=== PATIENT | male | born 1940 | race Caucasian/White ===

== ENCOUNTER 2017-12-17 09:36 | Outpatient (CLI) | payer MEDICARE, SELFPAY ==
[2017-12-17 11:40] LABS: HCT 47.3 % (40.0-50.0); HGB 15.5 g/dL (13.5-17.5); Mean Corp. HGB Concentration 32.8 g/dL (32.0-36.0); Mean Corpuscular Hemoglobin 28.8 pg (27.0-33.0); Mean Corpuscular Volume 87.9 fL (80-95); Mean Platelet Volume 10.8 fL (8.0-11.0); Platelet Count 197 x1000/uL (130-400); RBC 5.38 m/cumm (4.50-6.00); RBC Distribution Width 13.8 % (11.8-14.1)
[2017-12-17 11:52] LABS: ALT 35 U/L (12-78); AST 22 U/L (15-37); Albumin 4.2 g/dL (3.4-5.0); Alkaline Phosphatase 58 U/L (46-116); Amylase 79 U/L (25-115); Anion Gap 2.9 mmol/L (3-11); BUN 17 mg/dL (7-18); Bilirubin, Total 1.5 mg/dL (0.2-1.0); CO2 30.1 mmol/L (21.0-32.0); CREATININE 1.06 mg/dL (0.70-1.30); Calcium 8.8 mg/dL (8.5-10.1); Chloride 104 mmol/L (98-107); Glucose 93 mg/dL (70-100); Lipase 159 U/L (73-393); Potassium 4.4 mmol/L (3.5-5.1); Sodium 137 mmol/L (136-145); Total Protein 7.4 g/dL (6.4-8.2)
== END 2017-12-17 09:56 ==
LOC: LBO 09:47 → LOS 10:58
PROVIDERS: PCP Family Medicine; Visit Provider Family Medicine
DX: D64.9 Anemia, unspecified (principal); R10.9 Unspecified abdominal pain
CPT/HCPCS: 36415; 80053; 83690; 85027; 82150

== ENCOUNTER 2021-01-04 10:14 | Outpatient (REF) | payer MEDICARE, SELFPAY ==
[2021-01-04 14:48] LABS: Abs Immature Grans 0.02 10^3/uL (0.0-0.06); Absolute Basophil Count 0.05 10^3/uL (0.0-0.2); Absolute Eosinophil Count 0.19 10^3/uL (0.0-0.7); Absolute Lymphocyte Count 2.11 10^3/uL (1.2-3.4); Absolute Monocyte Count 0.81 10^3/uL (0.1-0.8); Absolute Neutrophil Count 6.25 10^3/uL (1.2-6.7); Basophils % 0.5; HCT 44.5 % (40.0-50.0); HGB 14.3 g/dL (13.5-17.5); Immature Grans % 0.2; Lymphocytes % 22.4; MCH 29.1 pg (27.0-33.0); MCHC 32.1 % (32.0-36.0); MCV 90.6 fL (80-95); MPV 10.6 fL (8.0-11.0); Monocytes % 8.6; Neutrophils % 66.3; Nucleated RBC 0 %; Platelet Count 198 10^3/uL (130-400); RBC 4.91 10^6/uL (4.36-5.78); RDW 12.9 % (11.8-14.1); RDW-SD 42.5 fL; WBC 9.43 10^3/uL (4.4-10.8)
[2021-01-04 14:55] LABS: Anion Gap 6.1 mmol/L (3-11); BUN 16 mg/dL (7-18); CO2 29.9 mmol/L (21.0-32.0); CREATININE 1.1 mg/dL (0.70-1.30); Calcium 8.7 mg/dL (8.5-10.1); Chloride 103 mmol/L (98-107); Glucose 116 mg/dL (74-106); Potassium 4.2 mmol/L (3.5-5.1); Sodium 139 mmol/L (136-145); Uric Acid 6.2 mg/dL (3.5-7.2)
== END 2021-01-04 10:15 | disposition home or self-care (01) ==
LOC: LBN 10:14
PROVIDERS: PCP Family Medicine; Visit Provider Nurse Practitioner Family
DX: M25.531 Pain in right wrist (principal)
CPT/HCPCS: 80048; 84550; 85025

== ENCOUNTER 2021-01-04 14:24 | Outpatient (CLI) | payer MEDICARE, SELFPAY ==
--- NOTE | 2021-01-04 09:45 | DI.RAD_ITS ---
Exam(s) XR WRIST RT COMPLETE EXAM: XR WRIST RT COMPLETE-three views CLINICAL HISTORY: right wrist pain,m25.531. TECHNIQUE: 2D digital imaging was performed. COMPARISON: No exams were available for comparison FINDINGS: There is no fracture of distal radius and ulna nor significant ulnar variance. However, on the lateral view there is a 3 x 2 millimeter calcific density noted dorsally. Possibly a ccessory ossicle. Other calcific densities are also seen more distally on the lateral view on the do rsal aspect of the wrist as well as a 3 x 2 millimeter calcification on the volar aspect of the proxi mal carpal row. IMPRESSION: Soft tissue calcific densities both on the dorsal and palmar aspect of the carpal row bones. Possibl y represent small fractures. Dorsal finding may be accessory ossicle. Clinically indicated follow-up MRI can for added sensitivity and specificity. DATA REPOSITORY: RADIATION DOSE DELIVERED:
== END 2021-01-04 14:44 ==
PROVIDERS: PCP Family Medicine; Visit Provider Nurse Practitioner Family
DX: M25.531 Pain in right wrist (principal); M25.831 Other specified joint disorders, right wrist
CPT/HCPCS: 73110

== ENCOUNTER 2022-11-03 13:41 | Outpatient (REF) | payer MEDICARE, SELFPAY ==
[2022-11-03 18:06] LABS: Abs Immature Grans 0.04 10^3/uL (0.0-0.06); Absolute Lymphocyte Count 1.82 10^3/uL (1.2-3.4); Absolute Monocyte Count 0.92 10^3/uL (0.1-0.8); Basophils % 0.6; Eosinophils % 1.8; HCT 41.1 % (40.0-50.0); HGB 13.6 g/dL (13.5-17.5); Immature Grans % 0.4; Lymphocytes % 16.8; MCHC 33.1 % (32.0-36.0); MCV 91 fL (80-95); MPV 11.1 fL (8.0-11.0); Monocytes % 8.5; Neutrophils % 71.9; Platelet Count 195 10^3/uL (130-400); RBC 4.53 10^6/uL (4.36-5.78); RDW 13.2 % (11.8-14.1); RDW-SD 43.4 fL; WBC 10.84 10^3/uL (4.4-10.8)
[2022-11-03 18:10] LABS: Absolute Basophil Count 0.07 10^3/uL (0.0-0.2); Absolute Neutrophil Count 7.79 10^3/uL (1.2-6.7)
[2022-11-03 18:12] LABS: Uric Acid 5.7 mg/dL (3.5-7.2)
== END 2022-11-03 13:42 | disposition home or self-care (01) ==
LOC: LBN 13:41
PROVIDERS: PCP Family Medicine; Visit Provider Nurse Practitioner Family
DX: M79.672 Pain in left foot (principal); L53.8 Other specified erythematous conditions
CPT/HCPCS: 84550; 85025

== ENCOUNTER → 2022-12-05 03:46 | Outpatient (CLI) | payer MEDICARE, SELFPAY ==
--- NOTE | 2022-12-05 | DI.MRI_ITS ---
Exam(s) MR LUMBAR SPINE WO EXAM: MR LUMBAR SPINE WO CLINICAL HISTORY: SCREEN FOR OVERT NERVE ROOT COMPRESSION TO ACCOUNT FOR SENSORY SYMPTOMS. TECHNIQUE: Multiplanar multisequence MRI of the Lumbar spine was performed. COMPARISON: No exams were available for comparison FINDINGS: Bones: The last intervertebral disc space is designated the L5/S1 level for the numbering purpose of this examination. The vertebral body heights are well maintained. There are Schmorl's nodes seen in the superior endplates of L2-3 and 4 and the inferior endplate of T12. Mild degenerative endplate si gnal changes are seen particularly at L2-3 and L3-L4. Cord: The conus tip ends at the T12 level. It is of normal size and signal intensity. T12-L1: No disc herniations or bulges are present. No central spinal canal or neural foraminal stenos is. L1-2: There is a mild diffuse disc bulge and mild degenerative changes of the facets. No significant central spinal canal stenosis is seen. No significant neural foraminal stenosis is present. L2-3: There is a mild diffuse disc bulge. There are degenerative changes of the facets. No signific ant central spinal canal stenosis is seen. Mild bilateral neural foraminal stenosis is present. L3-4: There is a mild diffuse disc bulge. There are degenerative changes of the facets present. No significant central spinal canal stenosis is seen.Moderate bilateral neural foraminal stenosis is pre sent. L4-5: There are degenerative changes of the facets. There is a mild diffuse disc bulge. No focal di sc herniation. There is mild narrowing of the neural foramen bilaterally. L5-S1: There are degenerative changes seen at the facets. No central spinal canal or neural foramina l stenosis. Soft tissues: The visualized SI joints and sacrum are well maintained. There is mild atrophy of the p araspinal muscles. Visualized abdominal organs: Simple cysts are seen in the left kidney. No follow-up is recommended. IMPRESSION: 1. Multilevel degenerative changes in the lumbar spine as described. 2. Multilevel neural foraminal narrowing in the lumbar spine. Please see above for the specific leve ls. DATA REPOSITORY:
== END ==
PROVIDERS: PCP Family Medicine; Visit Provider Neuromusculoskeletal Medicine & OMM
DX: M99.63 Osseous and subluxation stenosis of intervertebral foramina of lumbar region (principal); M51.36 Other intervertebral disc degeneration, lumbar region
CPT/HCPCS: 72148

== ENCOUNTER 2024-08-14 02:13 | Outpatient (CLI) | payer MEDICARE, SELFPAY ==
--- NOTE | 2024-08-14 07:15 | DI.MRI_ITS ---
Exam(s) MR BRAIN WO/W EXAM: MR BRAIN WO/W CLINICAL HISTORY: evaluate brain for metastasis,metastatic melanoma,c43.9. TECHNIQUE: Multiplanar multisequence MRI of the brain was performed. CONTRAST MATERIAL: IV Contrast: 20 ML of Dotarem contrast administered. COMPARISON: No exams were available for comparison FINDINGS: VENTRICLES AND EXTRA AXIAL SPACES: Normal in size and morphology for the patient's age. HEMORRHAGE: None. CEREBRAL PARENCHYMA: No focus of restricted diffusion to suggest acute infarct. No space-occupying le clemencia identified. Moderate atrophy. Mild white matter changes of small vessel disease. BRAINSTEM/CEREBELLUM: Normal. CALVARIUM: Normal. Contour defect in the scalp over the high right parietal region. No abnormal sig nal changes no abnormal enhancing mass. ENHANCEMENT: No suspicious enhancement identified. VISUALIZED PARANASAL SINUSES/MASTOIDS: mucosal thickening of the left maxillary sinus and ethmoid ai r cells.. Orbits: Unremarkable. Pituitary: Not enlarged. Vasculature: Normal flow voids. IMPRESSION: Atrophy. No evidence of metastatic lesions. DATA REPOSITORY:
[2024-08-14] MEDS: Gadoterate meglumine 20 ML SYRINGE IVP (12:20)
[2024-08-14] MEDS: Normal Saline Flush 10 ML SYR IVP (12:20)
== END 2024-08-14 02:33 ==
LOC: DI 02:13
PROVIDERS: PCP Family Medicine; Visit Provider Family Medicine
DX: C43.9 Malignant melanoma of skin, unspecified (principal); G31.9 Degenerative disease of nervous system, unspecified
CPT/HCPCS: 70553

== ENCOUNTER 2024-10-20 03:14 | Outpatient (CLI) | payer MEDICARE, SELFPAY ==
[2024-10-20 09:45] LABS: Abs Immature Grans 0.02 10^3/uL (0.0-0.06); HCT 41.6 % (40.0-50.0); HGB 13.5 g/dL (13.5-17.5); Immature Grans % 0.2 %; MCH 29.9 pg (27.0-33.0); MCHC 32.5 % (32.0-36.0); MCV 92 fL (80-95); MPV 9.8 fL (8.0-11.0); Platelet Count 182 10^3/uL (130-400); RBC 4.51 10^6/uL (4.36-5.78); RDW 13.2 % (11.8-14.1); RDW-SD 45.2 fL; WBC 8.97 10^3/uL (4.4-10.8)
[2024-10-20 10:05] LABS: ALT 32 U/L (16-63); AST 21 U/L (15-37); Albumin 4.0 g/dL (3.4-5.0); Alkaline Phosphatase 59 U/L (46-116); Anion Gap 7.1 mmol/L (3-11); BUN 16 mg/dL (7-18); Bilirubin, Total 1.6 mg/dL (0.2-1.0); CO2 29.9 mmol/L (21.0-32.0); Calcium 9.1 mg/dL (8.5-10.1); Chloride 104 mmol/L (98-107); Estimated GFR 66.61 (mL/min/1.73m2); Glucose 107 mg/dL (74-106); LDH 182 U/L (85-227); Potassium 4.1 mmol/L (3.5-5.1); Sodium 141 mmol/L (136-145); TSH 1.51 uIU/mL (0.36-3.74); Total Protein 7.2 g/dL (6.4-8.2)
== END 2024-10-20 03:15 | disposition home or self-care (01) ==
LOC: LBO 03:14
PROVIDERS: PCP Family Medicine; Visit Provider Internal Medicine Medical Oncology
DX: Z79.899 Other long term (current) drug therapy (principal); C78.00 Secondary malignant neoplasm of unspecified lung
CPT/HCPCS: 36415; 80053; 83615; 84439; 84443; 85025

== ENCOUNTER 2024-11-09 21:58 | Observation (INO) | payer MEDICARE, SELFPAY ==
[2024-11-09] VITALS (13 sets, daily range): BP systolic 145–165; BP diastolic 52–60; PULSE 79–97; RESP 14–33; TEMP 38.6; O2SAT 91–94
--- NOTE | 2024-11-09 22:15 | DI.CT_ITS ---
Exam(s) CT CHEST/ABD/PEL W EXAM: CT CHEST/ABD/PEL W CLINICAL HISTORY: Metastatic melanoma, eval for pneumonia, febrile. TECHNIQUE: Imaging Protocol: Axial computed tomography images with coronal and sagittal reformatted images were created and reviewed CONTRAST MATERIAL: Intravenous: Omnipaque 350 Contrast volume:75 mL Oral: None COMPARISON: No exams were available for comparison FINDINGS: CHEST: LUNGS: There is a malignant-appearing nodule in the right upper lobe measuring approximately 2 cm AP by 1.9 cm wide by 2.8 cm craniocaudal. Suspicious for neoplasm.. There is also metastatic appearing lesion evident in the left upper lobe measuring 1 x 1.0 cm in the apical posterior segment of the left upper lobe adjacent to the upper aspect of the major fissure. There is also a noncalcified 9 by 5 mm nodule in the right lower lobe which may also be metastatic given the history here. Other smaller more benign-appearing nodules in the lung alvarado are also noted. There are no infectious appearing infiltrates and there are no pleural effusions. MEDIASTINUM: There is no hilar nor mediastinal adenopathy. Visualized thyroid unremarkable. CARDIAC: Heart size appears minimally prominent. There is no pericardial effusion. The diameter of the ascending thoracic aorta is upper normal. There is no evidence of aortic dissection. Some coronary artery calcifications noted. OSSEOUS: No significant osseous lesions.No fractures evident.. ABDOMEN: There is no ascites. No abnormal mesenteric masses. LIVER: There are no focal hepatic lesions nor dilatation of intrahepatic ducts. GALLBLADDER/BILIARY: Gallbladder surgically absent. CBD is not dilated. PANCREAS: There is a mass in the head-uncinate process of the pancreas which is partially solid partially cystic. This mass measures approximately 2.6 cm wide by 2.6 cm AP by 4 cm craniocaudal. There are no additional masses in the body and tail the pancreas. The pancreatic duct is dilated.. There are no peripancreatic fluid collections. A few scattered pancreatic calcifications are noted. SPLEEN: Spleen is not enlarged. There are no intrasplenic lesions. Splenic and portal veins are patent. ADRENALS: There are no significant adrenal masses. KIDNEYS: Right kidney unremarkable. There is a benign cyst in the superior pole the left kidney which measures 3.5 x 3.0 cm. This does not require further imaging workup. There are no solid renal masses nor calculi nor hydronephrosis.. ABDOMINAL AORTA: Abdominal aorta is not enlarged. LYMPH NODES: There is no retroperitoneal nor paraaortic adenopathy. ABDOMINAL WALL: No evidence of significant anterior abdominal wall nor inguinal hernia. GI: There is no evidence of bowel obstruction. PELVIS: LYMPH NODES: There is no intrapelvic nor inguinal adenopathy. GI: No evidence of appendicitis.Sigmoid is quite redundant. No evidence of diverticulitis. URINARY BLADDER: Mild uniform thickening of the urinary bladder wall noted. Pelvic ureters are not dilated. REPRODUCTIVE: Mildly enlarged prostate. Seminal vesicles unremarkable. OSSEOUS: No fractures nor significant osseous lesions. Prior lower lumbar laminectomies. No hardware. IMPRESSION: 1. There are metastatic nodules in the upper lobes of both lungs as well as a smaller possible metastatic nodule in the right lower lobe. There are no obvious infectious appearing infiltrates and there are no pleural effusions nor intrathoracic adenopathy. 2. There is a mass in the pancreatic head-uncinate process as described above which is concerning for neoplasm and can be further studied with pancreatic protocol contrast infused MRI for added specificity. Pancreatic duct is moderately dilated. Given that there are few scattered calcifications in the pancreas there is a possibility that there has been prior pancreatitis and that this abnormal appearance of the pancreatic head is possibly related to sequelae of prior pancreatitis, as opposed to true neoplasm. 3. Prior cholecystectomy. The biliary tree is not dilated. 4. Other findings as above Preliminary virtual Radiology report was reviewed Final report (pancreas findings) called by myself to the hospitalist 11/10/2024 RADIATION DOSE DELIVERED: 609.84mGy.cm Total DLP DATA REPOSITORY: All CT scans at this facility are submitted to the National Radiology Data Registry (NRDR) Dose Index Registry (DIR) with the [employer] (ACR). RADIATION OPTIMIZATION: All CT scans at this facility use at least one of these dose optimization techniques: automated exposure control; mA and/or kV adjustment per patient size (includes targeted exams where dose is matched to clinical indication); or iterative reconstruction.
[2024-11-09 22:46] LABS: BE (Venous) 0 mmol/L (-2-3); HCO3 (Venous) 24 mmol/L (23-28); O2 Sat (Venous) 94 %; TCO2 (Venous) 22 mmol/L (24-29); pCO2 (Venous) 34 mmHg (41-51); pO2 (Venous) 66 mmHg
[2024-11-09 22:49] LABS: Abs Immature Grans 0.04 10^3/uL (0.0-0.06); HCT 40.2 % (40.0-50.0); HGB 13.1 g/dL (13.5-17.5); Immature Grans % 0.3 %; MCH 28.5 pg (27.0-33.0); MCHC 32.6 % (32.0-36.0); MCV 87 fL (80-95); MPV 9.2 fL (8.0-11.0); Platelet Count 244 10^3/uL (130-400); RBC 4.60 10^6/uL (4.36-5.78); RDW 12.3 % (11.8-14.1); RDW-SD 39.7 fL; WBC 13.44 10^3/uL (4.4-10.8)
--- NOTE | 2024-11-09 23:01 | W.ED.GENAD ---
Discharge Plan Disposition Patient Disposition: Admit to [facility] Condition: Improving Discharge Details Clinical Impression: Fever, Sepsis, Atelectasis of left lung Primary Care Provider: Robert Granger ED Provider: Isiah Pablo Home Meds and New Rx's Prescriptions: No Action ascorbate calcium (vitamin C) 500 mg tablet 500 mg PO DAILY Adult Probiotic 3 billion cell capsule 3,000 mmu cells PO DAILY Rx Instructions: administer with a meal niacin 50 mg tablet 50 mg PO BID Keytruda 25 mg/mL solution 200 mg IV Q6W Rx Instructions: administer over 30 mins gabapentin 300 mg capsule 600 - 900 mg PO TID Patient Comments: 2 in the A.m. 2 at noon and 3 at bedtime rosuvastatin 10 mg tablet 10 mg PO DAILY multivitamin [Daily Multi-Vitamin] 1 EACH tablet 1 tab PO DAILY dapsone 25 mg tablet 75 mg PO DAILY Patient Comments: for pemphigoid Rx Instructions: 75mg alternating with 50mg [id number] colchicine 0.6 mg capsule 0.6 mg PO DAILY PRN Rx Instructions: take 2 capsules 1.2mg then take 1 capsule 1 hours later. HPI General Date/Time Provider Initiated Documentation: 11/09/24 22:05. HPI Narrative: This is a pleasant 83-year-old male with a past medical history of high cholesterol, metastatic melanoma with metastases to the lungs, currently receiving therapy for Keytruda, previous cholecystectomy, pancreatic cyst, gout, who presents today for evaluation of fever. Patient and recently just got back from [place], they were around a significant amount of people for multiple shows during that time. Tonight the patient became extremely chilled. He could not get warm. His took his temperature and it was noted to be 106 on their home thermometer. He was given 1000 mg of Tylenol and brought into the ER for further assessment. He denies any new cough, abdominal., Rash, headache, neck pain, or chest pain. He denies any dysuria or urinary frequency. No other complaints. No vomiting or diarrhea. Related Data Home Medications ?Medication ?Instructions ?Recorded ?Confirmed multivitamin (Daily Multi-Vitamin 1 tab PO DAILY 09/23/13 11/09/24 tablet) ascorbate calcium (vitamin C) 500 500 mg PO DAILY 12/11/19 11/09/24 mg tablet lactobacillus combination no.8 3 3,000 mmu cells PO DAILY 12/11/19 11/09/24 billion cell capsule (Adult Probiotic) dapsone 25 mg tablet 75 mg PO DAILY for pemphigoid 12/05/22 11/09/24 niacin 50 mg tablet 50 mg PO BID 12/05/22 11/09/24 rosuvastatin 10 mg tablet 10 mg PO DAILY 08/18/24 11/09/24 gabapentin 300 mg capsule 600 - 900 mg PO TID 09/24/24 11/09/24 pembrolizumab 25 mg/mL intravenous 200 mg (8 mL) IV Q6W metastatic 09/24/24 11/09/24 solution (Keytruda) melanoma colchicine 0.6 mg capsule 0.6 mg PO DAILY PRN 11/09/24 11/09/24 Previous Rx's ?Medication ?Instructions ?Recorded pembrolizumab 25 mg/mL intravenous 200 mg (8 mL) IV Q6W metastatic 09/24/24 solution (Keytruda) melanoma Allergies Allergy/AdvReac Type Severity Reaction Status Date / Time Tetracyclines Allergy Severe ANGIOEDEMA Verified 11/09/24 22:21 General Stated Complaint: Fever SKIP: 3 Exam Narrative Exam Narrative: 1.Const: Well-nourished, Well-developed, appearing stated age 2.Eyes: PERRL, no conjunctival injection, and symmetrical lids. 3.ENT: Atraumatic external nose and ears. Moist MM. Neck: Symmetric, trachea midline, No thyromegaly. Patient demonstrates good movement of cervical neck. There is no nuchal rigidity, no nuchal tenderness. Patient is able to flex the neck without any difficulty or significant pain. Negative Kernig's and Brudzinski sign. 4.CVS: +S1/S2, Peripheral pulses 2+ and equal in all extremities. Brisk capillary refill in all extremities. 5.RESP: Unlabored respiratory effort. Mild crackles left lower lung alvarado 6.GI: Soft, Nontender/Nondistended, No hepatosplenomegaly. No guarding or rebound. 7.MSK: Normocephalic/Atraumatic, Extremities w/o deformity or ttp No cyanosis or clubbing, Normal movement of all extremities 8.Skin: Warm, Dry. No rashes or lesions. 9.Neuro: electrophysiology tech II-XII grossly intact. Sensation grossly intact, no focal neurologic deficits. 10.Psych: (AAO) x3. Appropriate mood and affect Course Vital Signs Vital signs: Vital Signs Temperature 38.6 C H 11/09/24 22:11 Pulse 95 H 11/09/24 22:11 Respiratory Rate 16 11/09/24 22:11 Blood Pressure 145/52 H 11/09/24 22:11 Pulse Oximetry 92 11/09/24 22:11 Temperature 38.6 C H 11/09/24 22:11 Temperature Source Oral 11/09/24 22:11 Pulse 95 H 11/09/24 22:11 Respiratory Rate 16 11/09/24 22:11 Blood Pressure 145/52 H 11/09/24 22:11 Blood Pressure Position Sitting 11/09/24 22:11 Pulse Oximetry 92 11/09/24 22:11 Oxygen Delivery Method Room Air 11/09/24 22:11 Oxygen Flow Rate 0 11/09/24 22:11 Lab/Test Results Lab/Test Results: 11/09/24 22:37 Blood Blood Culture - Pending 11/09/24 22:21 Blood Blood Culture - Pending Laboratory Tests Range/Units 11/09/24 22:37 WBC (4.4-10.8) 10^3/uL 13.44 H RBC (4.36-5.78) 10^6/uL 4.60 Hgb (13.5-17.5) g/dL 13.1 L Hct (40.0-50.0) % 40.2 MCV (80-95) fL 87 MCH (27.0-33.0) pg 28.5 MCHC (32.0-36.0) % 32.6 RDW (11.8-14.1) % 12.3 Plt Count (130-400) 10^3/uL 244 MPV (8.0-11.0) fL 9.2 Immature Gran % % 0.3 Neutrophils % % 75.7 Lymphocytes % % 12.6 Monocytes % % 9.7 Eosinophils % % 1.3 Basophils % % 0.4 Nucleated RBC % (0.0-0.3) % 0.0 Absolute Neutrophils (1.2-6.7) 10^3/uL 10.17 H Absolute Lymphocytes (1.2-3.4) 10^3/uL 1.69 Absolute Monocytes (0.1-0.8) 10^3/uL 1.30 H Absolute Eosinophils (0.0-0.7) 10^3/uL 0.17 Absolute Basophils (0.0-0.2) 10^3/uL 0.05 VBG pH (7.31-7.41) 7.46 H VBG pCO2 (41-51) mmHg 34 L VBG pO2 mmHg 66 VBG HCO3 (23-28) mmol/L 24 VBG Total CO2 (24-29) mmol/L 22 L VBG O2 Saturation % 94 VBG Base Excess (-2-3) mmol/L 0 VBG Lactate (<or=2.0) mmol/L 0.9 Medical Decision Making This is a pleasant 83-year-old male with a past medical history of high cholesterol, metastatic melanoma with metastases to the lungs, currently receiving therapy for Keytruda, previous cholecystectomy, pancreatic cyst, gout, who presents today for evaluation of fever. Patient and recently just got back from [place], they were around a significant amount of people for multiple shows during that time. Tonight the patient became extremely chilled. He could not get warm. His took his temperature and it was noted to be 106 on their home thermometer. He was given 1000 mg of Tylenol and brought into the ER for further assessment. He denies any new cough, abdominal., Rash, headache, neck pain, or chest pain. He denies any dysuria or urinary frequency. No other complaints. No vomiting or diarrhea. Exam demonstrates mild crackles in the left lower lung field, no rash, no ear pain or neck pain, no abdominal pain on exam. Differential includes pneumonia secondary to his metastatic lesions or independent, viral etiology, urinary infection. Due to his complicated metastatic nature, potential for indolent infections, we will get CT imaging of chest and abdomen, will get blood work, treat his fever, monitor closely and reassess. Patient meet sepsis criteria. Due to his age and risk factors we will start broad-spectrum antibiotics of vancomycin and Zosyn. 2:18 AM Laboratory workup has returned, patient has a white count of 13.4, left shift is present, electrolytes stable renal function stable, procalcitonin and lactic stable. Urinalysis shows no evidence of infection. COVID flu and RSV are negative. CT scan demonstrates no acute process aside from presence of metastatic disease. However on my personal review there does appear to be atelectatic changes at the base of the left lung, she is also aware the crackles are auscultated clinically on exam. With the patient's elevated white count, fever, initial tachycardia, he does meet SIRS criteria, with the concern for the pulmonary component in addition to potential bacteremia, he certainly meets sepsis criteria. With the patient's age of 83, clinical risk factors, the presence of the neuromodulator Keytruda, I do feel that he would benefit admission/observation, pending blood cultures. Discussed this with patient and family, they agree. Discussed this with the hospitalist Dr. Wheeler. He agrees. I have extensively reviewed the treatment plan with the patient. I have addressed all patient concerns at this time. I have also discussed the plan with the admitting physician and they agree with the current assessment and plan and have agreed to assume responsibility for the patient. All parties demonstrate verbal understanding and agreement with our assessment and plan at this time. The documentation in this chart was dictated using [employer] dictation software. Please excuse any dictation errors. From FINDINGS: Lungs: Right upper lobe spiculated mass with cicatrization and superior subpleural scarring. Lesion measures about 20 x 20 x 19 mm (series 4, image 27; series 8, image 50). Lobulated mass in the posterior aspect of the left upper lobe measuring about 10 x 11 x 11 mm (series 4, image 48; series 8, image 50). Some lingular micronodularity, scarring, atelectasis. A few additional nodules are noted of the lung bases. Pleural spaces: Unremarkable. No pneumothorax. No pleural effusion. Heart: A few aortic valve calcifications are seen. Coronary arteries: Heavy coronary calcified atherosclerotic disease. Lymph nodes: Unremarkable. No enlarged lymph nodes. Vasculature: Heavy atherosclerotic disease of the intrathoracic aorta extending into the major visualized branches. Mitral annulus and aortic annulus calcifications Bones/joints: Diffuse degenerative change of the visualized osseous structures. Soft tissues: Unremarkable. IMPRESSION: 1. Findings are congruent with intrathoracic metastatic disease as highlighted above. Given lack of direct comparisons, difficult to assess for stability of the findings at this time. 2. There is no definitive evidence for pneumonia at this time. 3. Aortic valve calcifications which can be seen in stenosis. Correlate clinically. FINDINGS: Liver: Normal. No mass. Gallbladder and biliary ducts: Cholecystectomy. Pancreas: Atrophy of the pancreas. Few punctate calcification of the pancreas are seen, likely sequela of prior insult. Spleen: Normal. No splenomegaly. Adrenal glands: Normal. No mass. Kidneys and ureters: Benign left renal cysts. Symmetric perinephric stranding bilaterally. Stomach and bowel: Mild to moderate colonic stool burden. Appendix: No evidence of appendicitis. Intraperitoneal space: Unremarkable. No free air. No significant fluid collection. Vasculature: Heavy atherosclerotic disease. Lymph nodes: Unremarkable. No enlarged lymph nodes. Urinary bladder: Unremarkable as visualized. Reproductive: Dystrophic calcifications of the prostate gland. Bones/joints: Diffuse degenerative changes of the visualized osseous structures. Soft tissues: Unremarkable. IMPRESSION: No acute intra-abdominal findings. Thank you for allowing us to participate in the care of your patient. 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
[2024-11-09] MEDS: Normal Saline 1,000 ML 1000 ML IV (23:03)
[2024-11-09 23:04] LABS: ALT 45 U/L (16-63); AST 26 U/L (15-37); Albumin 3.7 g/dL (3.4-5.0); Alkaline Phosphatase 75 U/L (46-116); Anion Gap 10.2 mmol/L (3-11); BUN 17 mg/dL (7-18); Bilirubin, Total 1.5 mg/dL (0.2-1.0); CO2 25.8 mmol/L (21.0-32.0); Calcium 9.1 mg/dL (8.5-10.1); Chloride 100 mmol/L (98-107); Estimated GFR 74.68 (mL/min/1.73m2); Glucose 137 mg/dL (74-106); Potassium 3.8 mmol/L (3.5-5.1); Sodium 136 mmol/L (136-145); Total Protein 7.6 g/dL (6.4-8.2)
[2024-11-09] MEDS: Omnipaque 350 MG/ML 100 ML BTL IJ (23:21)
[2024-11-09] MEDS: Normal Saline - Diluent 50 ML VIAL IJ (23:22)
[2024-11-09] MEDS: Normal Saline Flush 10 ML SYR IVP (23:22)
[2024-11-09 23:26] LABS: Procalcitonin < 0.10 ng/mL
[2024-11-09] MEDS: PIPERACILLIN/TAZO 4.5 GM in Normal Saline 100 ML IVPB (23:51)
[2024-11-09] MEDS: Ketorolac 15 MG/ML VIAL IVP (23:51)
[2024-11-10] VITALS (17 sets, daily range): BP systolic 130–146; BP diastolic 58–79; PULSE 57–75; RESP 11–24; TEMP 36.4–36.5; O2SAT 90–99
[2024-11-10 00:03] LABS: COVID-19 PCR Negative (Negative); RSV PCR Negative (Negative)
[2024-11-10 00:57] LABS: Glucose Negative (Negative)
[2024-11-10 01:04] LABS: WBC 0-2 HPF (0-5)
--- NOTE | 2024-11-10 01:05 | DI.VRAD_ITS ---
PROCEDURE INFORMATION: Exam: CT Chest With Contrast; Diagnostic Exam date and time: 11/09/2024 11:19 PM Age: 83 years old Clinical indication: Fever; Metastatic melanoma, eval for pneumonia, febrile TECHNIQUE: Imaging protocol: Diagnostic computed tomography of the chest with contrast. 3D rendering (Not supervised by radiologist): MIP and/or 3D reconstructed images were created by the technologist. Radiation optimization: All CT scans at this facility use at least one of these dose optimization techniques: automated exposure control; mA and/or kV adjustment per patient size (includes targeted exams where dose is matched to clinical indication); or iterative reconstruction. Contrast material: OMNIPAQUE 350; Contrast volume: 75 ml; Contrast route: INTRAVENOUS (IV); COMPARISON: No relevant prior studies available. FINDINGS: Lungs: Right upper lobe spiculated mass with cicatrization and superior subpleural scarring. Lesion measures about 20 x 20 x 19 mm (series 4, image 27; series 8, image 50). Lobulated mass in the posterior aspect of the left upper lobe measuring about 10 x 11 x 11 mm (series 4, image 48; series 8, image 50). Some lingular micronodularity, scarring, atelectasis. A few additional nodules are noted of the lung bases. Pleural spaces: Unremarkable. No pneumothorax. No pleural effusion. Heart: A few aortic valve calcifications are seen. Coronary arteries: Heavy coronary calcified atherosclerotic disease. Lymph nodes: Unremarkable. No enlarged lymph nodes. Vasculature: Heavy atherosclerotic disease of the intrathoracic aorta extending into the major visualized branches. Mitral annulus and aortic annulus calcifications. Bones/joints: Diffuse degenerative change of the visualized osseous structures. Soft tissues: Unremarkable. IMPRESSION: 1. Findings are congruent with intrathoracic metastatic disease as highlighted above. Given lack of direct comparisons, difficult to assess for stability of the findings at this time. 2. There is no definitive evidence for pneumonia at this time. 3. Aortic valve calcifications which can be seen in stenosis. Correlate clinically. PROCEDURE INFORMATION: Exam: CT Abdomen And Pelvis With Contrast Exam date and time: 11/09/2024 11:19 PM Age: 83 years old Clinical indication: Fever; Metastatic melanoma, eval for pneumonia, febrile TECHNIQUE: Imaging protocol: Computed tomography of the abdomen and pelvis with contrast. 3D rendering (Not supervised by radiologist): MIP and/or 3D reconstructed images were created by the technologist. Radiation optimization: All CT scans at this facility use at least one of these dose optimization techniques: automated exposure control; mA and/or kV adjustment per patient size (includes targeted exams where dose is matched to clinical indication); or iterative reconstruction. Contrast material: OMNIPAQUE 350; Contrast volume: 75 ml; Contrast route: INTRAVENOUS (IV); COMPARISON: MR LUMBAR SPINE WO 12/05/2022 8:38 AM FINDINGS: Liver: Normal. No mass. Gallbladder and biliary ducts: Cholecystectomy. Pancreas: Atrophy of the pancreas. Few punctate calcification of the pancreas are seen, likely sequela of prior insult. Spleen: Normal. No splenomegaly. Adrenal glands: Normal. No mass. Kidneys and ureters: Benign left renal cysts. Symmetric perinephric stranding bilaterally. Stomach and bowel: Mild to moderate colonic stool burden. Appendix: No evidence of appendicitis. Intraperitoneal space: Unremarkable. No free air. No significant fluid collection. Vasculature: Heavy atherosclerotic disease. Lymph nodes: Unremarkable. No enlarged lymph nodes. Urinary bladder: Unremarkable as visualized. Reproductive: Dystrophic calcifications of the prostate gland. Bones/joints: Diffuse degenerative changes of the visualized osseous structures. Soft tissues: Unremarkable. IMPRESSION: No acute intra-abdominal findings. Dictated and Authenticated by: Eduardo Blevins MD. Orderin Bev Joyce MD
--- NOTE | 2024-11-10 03:05 | W.PM.HP.N ---
Date of service: 11/10/24 Time of Service: 03:05 Assessment and Plan Assessment and plan (1) Metastatic melanoma: Status: Acute Assessment and plan: cw medical management (2) Sepsis: Status: Acute Assessment and plan: Do not know for sure if there is patient meets sepsis by criteria but he does have SIRS. We will treat with Rocephin and Zithromax. Continue with IV fluids. Cultures are pending. Most likely be able to discharge home tomorrow. In the ED a lactate level INR level bili level were not drawn which would be able to decide if he has severe sepsis but by physical physical exam and other lab data think he is qualified. [id number] History of Present Illness History of Present Illness Chief Complaint: sob Narrative: This is an 83-year-old gentleman with a known history of melanoma for which he is treated with Keytruda presents with a fever as well as coughing. Patient had recently been in a conference with a lot of people and has concerned that he has picked up a virus or pneumonia. While he was in the ED he was noted to have an elevated temperature at 38.6 as well as tachypnea and elevated white count. He does meet criteria for SIRS. CT scan done did not indicate pneumonia but he does have a known mass for which he is being treated for. It is thought that this mass is due to his underlying melanoma. By curb 65 score he only gets 1 point due to age. Considering that it is already 3 in the morning and his 's left to go home, as well as the fact that he did have a significant elevation in his temperature, potential exposure to infection, and leukocytosis we agreed to admit him at least overnight for monitoring. 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) Gout Social History Smoking/Tobacco Use Status: Never Smoking risk assessment performed?: Yes Alcohol Intake: never Drug use: Never Substance use type: does not use Meds Allergies and Home Medications Allergies Allergy/AdvReac Type Severity Reaction Status Date / Time Tetracyclines Allergy Severe ANGIOEDEMA Verified 11/09/24 22:21 Home Medications ?Medication ?Instructions ?Recorded ?Confirmed ?Type multivitamin (Daily Multi-Vitamin 1 tab PO DAILY 09/23/13 11/09/24 History tablet) ascorbate calcium (vitamin C) 500 500 mg PO DAILY 12/11/19 11/09/24 History mg tablet lactobacillus combination no.8 3 3,000 mmu cells PO DAILY 12/11/19 11/09/24 History billion cell capsule (Adult Probiotic) dapsone 25 mg tablet 75 mg PO DAILY for pemphigoid 12/05/22 11/09/24 History niacin 50 mg tablet 50 mg PO BID 12/05/22 11/09/24 History rosuvastatin 10 mg tablet 10 mg PO DAILY 08/18/24 11/09/24 History gabapentin 300 mg capsule 600 - 900 mg PO TID 09/24/24 11/09/24 History pembrolizumab 25 mg/mL intravenous 200 mg (8 mL) IV Q6W metastatic 09/24/24 11/09/24 Rx solution (Keytruda) melanoma colchicine 0.6 mg capsule 0.6 mg PO DAILY PRN 11/09/24 11/09/24 History Exam Narrative Exam Narrative: HEENT-normocephalic atraumatic mucous membranes moist oropharynx is clear he does have multiple areas of actinic keratosis on his scalp. Neck-no lymphadenopathy no JVD no thyromegaly Cardiovascular-regular rate and rhythm no murmur rubs gallops Lungs-does have a crackle in his right base. No accessory muscle use speaking in complete sentences Abdomen-soft nontender nondistended bowel sounds active Extremities-no sinus clubbing or edema Neurologic cranial nerves II through XII intact as tested reflexes in upper EXTR normal as tested Psych-alert and orient x 3 Results Labs 11/09/24 22:37 11/09/24 22:37 Labs: Laboratory Results - last 24 hr 11/09/24 11/09/24 11/10/24 22:37 23:18 00:03 WBC 13.44 H RBC 4.60 Hgb 13.1 L Hct 40.2 MCV 87 MCH 28.5 MCHC 32.6 RDW 12.3 Plt Count 244 MPV 9.2 Immature Gran % 0.3 Neutrophils % 75.7 Lymphocytes % 12.6 Monocytes % 9.7 Eosinophils % 1.3 Basophils % 0.4 Nucleated RBC % 0.0 Absolute Neutrophils 10.17 H Absolute Lymphocytes 1.69 Absolute Monocytes 1.30 H Absolute Eosinophils 0.17 Absolute Basophils 0.05 VBG pH 7.46 H VBG pCO2 34 L VBG pO2 66 VBG HCO3 24 VBG Total CO2 22 L VBG O2 Saturation 94 VBG Base Excess 0 VBG Lactate 0.9 Sodium 136 Potassium 3.8 Chloride 100 Carbon Dioxide 25.8 Anion Gap 10.2 BUN 17 Creatinine 1.0 Est GFR (CKD-EPI 2020) 74.68 Glucose 137 H Calcium 9.1 Total Bilirubin 1.5 H AST 26 ALT 45 Alkaline Phosphatase 75 Total Protein 7.6 Albumin 3.7 Procalcitonin < 0.10 Urine Color Dark Yellow Urine Clarity Sl Cloudy Urine pH 6.0 Ur Specific Donalds 1.010 Urine Protein 30 H Urine Ketones Negative Urine Blood Small H Urine Nitrite Negative Urine Bilirubin Negative Urine Urobilinogen 1.0 H Ur Leukocyte Esterase Negative Urine RBC 3-5 H Urine WBC 0-2 Ur Epithelial Cells Negative Urine Crystals Negative Urine Bacteria Rare Urine Casts Negative Urine Mucus Moderate Urine Other Rare Renal Ur Culture Indicated? C&S Done As Ordered Urine Glucose Negative COVID-19 Source Nasopharynx SARS-CoV-2 (PCR) Negative Influenza Type A (PCR) Negative Influenza Type B (PCR) Negative RSV (PCR) Negative Last Vital Signs Temp 38.6 C H 11/09/24 22:11 Pulse 68 11/10/24 01:01 Resp 24 11/10/24 01:30 BP 141/58 H 11/10/24 01:01 Pulse Ox 94 11/10/24 01:40 Time Spent Time spent with Patient: 40-54 minutes Time was spent: preparing to see the patient(eg.review tests), obtaining and/or reviewing separately otained hiistory, ordering medications,tests, procedures, referring, communicating with other health critical care paramedic, indepentently interpreting results, counseling the patient and care coordination
--- NOTE | 2024-11-10 03:37 | W.PC.ACHO ---
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) Gout Most Recent Vital Signs Temperature 38.6 C H 11/09/24 22:11 Temperature Source Oral 11/09/24 22:11 Pulse 68 11/10/24 01:01 Pulse 64 11/10/24 01:30 Respiratory Rate 24 11/10/24 01:30 Blood Pressure 141/58 H 11/10/24 01:01 Blood Pressure Mean 84 11/10/24 01:01 Blood Pressure Position Sitting 11/09/24 22:11 Pulse Oximetry 94 11/10/24 01:40 Oxygen Delivery Method Room Air 11/09/24 22:11 Oxygen Flow Rate 0 11/09/24 22:11 Allergies Tetracyclines Allergy (Severe, Verified 11/09/24 22:21) ANGIOEDEMA Precautions Isolation Standard precaution 11/09/24 23:26 Active Medications Generic Name Dose Route Start Last Admin Trade Name Freq PRN Reason Stop Dose Admin Iohexol 100 ml 11/09/24 23:30 11/09/24 23:21 Omnipaque 350 Mg/Ml 100 Ml Btl IJ 12/09/24 23:59 75 ml DIRECTED JAMES Administration Sodium Chloride 0 ml 11/09/24 22:20 11/09/24 23:22 Normal Saline Flush 10 Ml Syr IVP 10 ml PRN PRN Administration Sodium Chloride 50 ml 11/09/24 23:30 11/09/24 23:22 Normal Saline - Diluent 50 Ml Vial IJ 50 ml .FOR DI USE JAMES Administration IV IV Catheter Type [Left Hand] Saline Lock IV Catheter Type [Right Diffusics Forearm] IV Catheter Gauge [Left Hand] 20 IV Catheter Gauge [Right 20 Forearm] Diet Orders Category Date Time Status Regular/Normal [DIET] Nutrition 11/10/24 Breakfast Active Diagnostics 11/10/24 11/10/24 11/09/24 Range/Units 05:35 00:03 23:18 WBC Pending (4.4-10.8) 10^3/uL RBC Pending (4.36-5.78) 10^6/uL Hgb Pending (13.5-17.5) g/dL Hct Pending (40.0-50.0) % MCV Pending (80-95) fL MCH Pending (27.0-33.0) pg MCHC Pending (32.0-36.0) % RDW Pending (11.8-14.1) % Plt Count Pending (130-400) 10^3/uL MPV Pending (8.0-11.0) fL Immature Gran % % Neutrophils % % Lymphocytes % % Monocytes % % Eosinophils % % Basophils % % Nucleated RBC % (0.0-0.3) % Absolute Neutrophils (1.2-6.7) 10^3/uL Absolute Lymphocytes (1.2-3.4) 10^3/uL Absolute Monocytes (0.1-0.8) 10^3/uL Absolute Eosinophils (0.0-0.7) 10^3/uL Absolute Basophils (0.0-0.2) 10^3/uL VBG pH (7.31-7.41) VBG pCO2 (41-51) mmHg VBG pO2 mmHg VBG HCO3 (23-28) mmol/L VBG Total CO2 (24-29) mmol/L VBG O2 Saturation % VBG Base Excess (-2-3) mmol/L VBG Lactate (<or=2.0) mmol/L Sodium Pending (136-145) mmol/L Potassium Pending (3.5-5.1) mmol/L Chloride Pending (98-107) mmol/L Carbon Dioxide Pending (21.0-32.0) mmol/L Anion Gap Pending (3-11) mmol/L BUN Pending (7-18) mg/dL Creatinine Pending (0.70-1.30) mg/dL Est GFR (CKD-EPI 2020) Pending (mL/min/1.73m2) Glucose Pending (74-106) mg/dL Calcium Pending (8.5-10.1) mg/dL Total Bilirubin Pending (0.2-1.0) mg/dL AST Pending (15-37) U/L ALT Pending (16-63) U/L Alkaline Phosphatase Pending (46-116) U/L Total Protein Pending (6.4-8.2) g/dL Albumin Pending (3.4-5.0) g/dL Procalcitonin ng/mL Urine Color Dark Yellow (Yellow) Urine Clarity Sl Cloudy (Clear) Urine pH 6.0 (5-8) Ur Specific Morse 1.010 (1.005-1.025) Urine Protein 30 H (Neg-Trace) mg/dL Urine Ketones Negative (Negative) mg/dL Urine Blood Small H (Negative) Urine Nitrite Negative (Negative) Urine Bilirubin Negative (Negative) Urine Urobilinogen 1.0 H (Up to 0.2) mg/dL Ur Leukocyte Esterase Negative (Negative) Urine RBC 3-5 H (0-2) HPF Urine WBC 0-2 (0-5) HPF Ur Epithelial Cells Negative (Negative) HPF Urine Crystals Negative (Negative) HPF Urine Bacteria Rare (Negative) HPF Urine Casts Negative (Negative) LPF Urine Mucus Moderate (Negative) Urine Other Rare Renal (Negative) Ur Culture Indicated? C&S Done As Ordered Urine Glucose Negative (Negative) mg/dL COVID-19 Source Nasopharynx SARS-CoV-2 (PCR) Negative (Negative) Influenza Type A (PCR) Negative (Negative) Influenza Type B (PCR) Negative (Negative) RSV (PCR) Negative (Negative) 11/09/24 Range/Units 22:37 WBC 13.44 H (4.4-10.8) 10^3/uL RBC 4.60 (4.36-5.78) 10^6/uL Hgb 13.1 L (13.5-17.5) g/dL Hct 40.2 (40.0-50.0) % MCV 87 (80-95) fL MCH 28.5 (27.0-33.0) pg MCHC 32.6 (32.0-36.0) % RDW 12.3 (11.8-14.1) % Plt Count 244 (130-400) 10^3/uL MPV 9.2 (8.0-11.0) fL Immature Gran % 0.3 % Neutrophils % 75.7 % Lymphocytes % 12.6 % Monocytes % 9.7 % Eosinophils % 1.3 % Basophils % 0.4 % Nucleated RBC % 0.0 (0.0-0.3) % Absolute Neutrophils 10.17 H (1.2-6.7) 10^3/uL Absolute Lymphocytes 1.69 (1.2-3.4) 10^3/uL Absolute Monocytes 1.30 H (0.1-0.8) 10^3/uL Absolute Eosinophils 0.17 (0.0-0.7) 10^3/uL Absolute Basophils 0.05 (0.0-0.2) 10^3/uL VBG pH 7.46 H (7.31-7.41) VBG pCO2 34 L (41-51) mmHg VBG pO2 66 mmHg VBG HCO3 24 (23-28) mmol/L VBG Total CO2 22 L (24-29) mmol/L VBG O2 Saturation 94 % VBG Base Excess 0 (-2-3) mmol/L VBG Lactate 0.9 (<or=2.0) mmol/L Sodium 136 (136-145) mmol/L Potassium 3.8 (3.5-5.1) mmol/L Chloride 100 (98-107) mmol/L Carbon Dioxide 25.8 (21.0-32.0) mmol/L Anion Gap 10.2 (3-11) mmol/L BUN 17 (7-18) mg/dL Creatinine 1.0 (0.70-1.30) mg/dL Est GFR (CKD-EPI 2020) 74.68 (mL/min/1.73m2) Glucose 137 H (74-106) mg/dL Calcium 9.1 (8.5-10.1) mg/dL Total Bilirubin 1.5 H (0.2-1.0) mg/dL AST 26 (15-37) U/L ALT 45 (16-63) U/L Alkaline Phosphatase 75 (46-116) U/L Total Protein 7.6 (6.4-8.2) g/dL Albumin 3.7 (3.4-5.0) g/dL Procalcitonin < 0.10 ng/mL Urine Color (Yellow) Urine Clarity (Clear) Urine pH (5-8) Ur Specific Morse (1.005-1.025) Urine Protein (Neg-Trace) mg/dL Urine Ketones (Negative) mg/dL Urine Blood (Negative) Urine Nitrite (Negative) Urine Bilirubin (Negative) Urine Urobilinogen (Up to 0.2) mg/dL Ur Leukocyte Esterase (Negative) Urine RBC (0-2) HPF Urine WBC (0-5) HPF Ur Epithelial Cells (Negative) HPF Urine Crystals (Negative) HPF Urine Bacteria (Negative) HPF Urine Casts (Negative) LPF Urine Mucus (Negative) Urine Other (Negative) Ur Culture Indicated? Urine Glucose (Negative) mg/dL COVID-19 Source SARS-CoV-2 (PCR) (Negative) Influenza Type A (PCR) (Negative) Influenza Type B (PCR) (Negative) RSV (PCR) (Negative) 11/10/24 00:03 Urine Culture - Pending Urine - Clean Catch 11/09/24 23:18 Blood Culture - Pending Blood 11/09/24 22:37 Blood Culture - Pending Blood Intake and Output - 24 Hour Total 11/09/24 21:58 thru 11/10/24 02:40 Intake Total 1600 Balance 1600 Weight 96.162 kg Intake: IV 1600 Falls Risk Assessment History of Falls No History 11/09/24 23:27 Contributing Factors No Factors 11/09/24 23:27 Ambulatory Aids Independent 11/09/24 23:27 Tubes/Lines None 11/09/24 23:27 Gait Evaluation No gait disturbance 11/09/24 23:27 Cognition No cognitive impairment 11/09/24 23:27 Fall Total Score 0 11/09/24 23:27 Level of Risk Standard/Low Risk 11/09/24 23:27 Problems (Last Reviewed 08/18/24 @ 11:27 by Stefanie Eisenberg NP) Atelectasis of left lung (Acute) Sepsis (Acute) Fever (Acute) Metastatic melanoma (Acute) v v v v v v v v v Sending and/or Receiving Nurses: Please use comment section below to note any information pertinent to the patient hand-off not included above. Information / Comments:Pt admit for one night observation at this point to med/surg room 226. Came by ambulance to ED,with , with fever of 106 degrees F @ home, was 101.5 on arrival, now 98.4. Recieved 1 g Tylenol, Toradol, 1 L fluid, Zosyn, Vanco and rocephin in ED. Dx w/ community acquired pneumonia, blood cultures pending. Hx of mets. melanoma to lungs on keytruda. Report received from:Called ED @ 0330, spoke w/ [facility], Outside Salesman.
[2024-11-10] MEDS: Enoxaparin 40 MG/0.4 ML SYR SC (03:39)
[2024-11-10] MEDS: cefTRIAXone 1,000 MG in Normal Saline 50 ML 100 MG IVPB (03:40)
[2024-11-10] MEDS: Lactated Ringers 1,000 ML 100 ML IV (04:08)
[2024-11-10 06:54] LABS: HCT 37.1 % (40.0-50.0); HGB 11.6 g/dL (13.5-17.5); MCH 27.7 pg (27.0-33.0); MCHC 31.3 % (32.0-36.0); MCV 89 fL (80-95); MPV 9.5 fL (8.0-11.0); Platelet Count 209 10^3/uL (130-400); RBC 4.19 10^6/uL (4.36-5.78); RDW 12.2 % (11.8-14.1); RDW-SD 39.6 fL; WBC 9.02 10^3/uL (4.4-10.8)
[2024-11-10 07:13] LABS: ALT 35 U/L (16-63); AST 21 U/L (15-37); Albumin 3.2 g/dL (3.4-5.0); Alkaline Phosphatase 65 U/L (46-116); Anion Gap 7.4 mmol/L (3-11); BUN 14 mg/dL (7-18); Bilirubin, Total 1.3 mg/dL (0.2-1.0); CO2 25.6 mmol/L (21.0-32.0); Calcium 8.4 mg/dL (8.5-10.1); Chloride 105 mmol/L (98-107); Estimated GFR 74.68 (mL/min/1.73m2); Glucose 114 mg/dL (74-106); Potassium 3.7 mmol/L (3.5-5.1); Sodium 138 mmol/L (136-145); Total Protein 6.5 g/dL (6.4-8.2)
[2024-11-10] MEDS: Multivitamin TAB 1 TAB PO (08:17)
[2024-11-10] MEDS: Lactobacillus Acidophilus CAP 1 CAP PO (08:17)
[2024-11-10] MEDS: Ascorbic Acid 500 MG TAB PO (08:17)
[2024-11-10] MEDS: Gabapentin 300 MG CAP PO (08:17)
[2024-11-10] MEDS: Azithromycin 250 MG TAB PO (08:17)
[2024-11-10 10:15] LABS: Magnesium 2.3 mg/dL (1.8-2.4)
[2024-11-10 10:29] LABS: TSH 0.08 uIU/mL (0.36-3.74)
--- NOTE | 2024-11-10 11:08 | PDOC.CMDIS ---
Date of service: 11/10/24 Time of Service: 11:08 LACE Index Scoring Tool Questions: Length of Stay (in days): 1 Was the patient admitted via the E.D.?: Yes E.D. Visits: 1 Answers: Total Score: 5 Risk of Readmission: Low Risk Care Management Discharge Plan Reason for Hospitalization: cap Discharge Plan: Bill will discharge home today and no new services are indicated at time of this discharge. He will follow up with his community providers and plan of care. He will transport via private vehicle by his . Patient/Family Education Needs: Review of discharge instructions, activity, limitations, and plan of care. Discuss ask me three.
--- NOTE | 2024-11-10 11:12 | IN_ITS ---
PT Notes Visit Reasons: Community-Acquired Pneumonia Physical Therapy Inpatient Initial Evaluation Date: 11/10/2024 Referring Doctor: Dr Wheeler PT Orders: PT CONSULT: PT Evaluation and treatment Precautions: IV Access left hand, Standard Patient Profile/Admitting Diagnosis: Pt is an 83 yo male presented to ED with fever. Pt dx of atelectasis and sepsis . Pt with known metastatic melanoma with mets to lung receiving treatment with Keytruda. Pt admitted for observation. treated with IV ABX . 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 Pt reports he stays on the first floor does not go to basement. He states when he is in [place] he has a FOS to his office/den. Pt independent ADL and amb Equipment Owned/DME: none Subjective: Pt states he is leaving today and needs to be out of the hospital to get to a dentist appointment. [Nurse notified] Pt states he sleeps in a recliner. Objective: [] General Observation: seated in chair fully dressed present. Mental Status:A+OX4 cooperative able to follow all instructions agreeable to participate in assessment Pain: denies ROM: [] BUE: WNL BLE: WNL Strength: [] BUE : 5/5 BLE hips 4/5 knee 5/5 ankle 5/5 Sensation: intact Bed Mobility/Transfers: [] Supine to sit independent Sit to stand independent Stand to sit independent Bed to chair independent Gait: amb independently without AD 200 feet with soes on reciprocal pattern. stairs: independent with rail reciprocal pattern Balance: [] Static Sitting: Normal Dynamic Sitting:Normal Static Standing: Normal Dynamic Standing: Normal Special Tests: [] Mobility Limitations Standardized Measure [] [facility] 6 clicks Basic Mobility Inpatient Short Form: [] Raw Score: 24 CMS Score: 0% Informed Consent/Education: Patient instructed in purpose of PT consult. Treatment 16149 Packet containing exercise has been given to patient. Education and training on initial set of exercises that can be done at home have been completed with patient. Access Code: [email or web address] URL: [email or web address] Date: 11/10/2024 Prepared by: Luli Caballero Exercises - Side Stepping with Counter Support - 1 x daily - 7 x weekly - 1-2 sets - 10 reps - Step Forward with Opposite Arm Reach - 1 x daily - 7 x weekly - 1-2 sets - 10 reps - Sit to Stand Without Arm Support - 1 x daily - 7 x weekly - 1-2 sets - 10 reps - Step Sideways with Arms Reaching - 1 x daily - 7 x weekly - 1-2 sets - 10 reps - Alternating Step Backward with Support - 1 x daily - 7 x weekly - 1-2 sets - 10 reps - Heel Raise - 1 x daily - 7 x weekly - 3 sets - 10 reps - Standing Single Leg Stance with Counter Support - 1 x daily - 7 x weekly - 1 sets - 5 reps - 20-30 sec hold - Standing Tandem Balance with Counter Support - 1 x daily - 7 x weekly - 1 sets - 5 reps - 20-30 sec hold Assessment: Seb is an 83 yo male presented with fever. Pt referred to PT for assessment of functional mobility prior to discharge to home. Pt demonstrates slight BLE strength deficit and would benefit from HEP which was reviewed and issued to patient and his . This deficit does not limit his ability to perform all transfers ambulation and stairs independently without a device. Pt noted with difficulty rising from 16 chair without use of BUE . Pt with ability to pace self during ambulation without cueing. No further skilled PT services indicated at this time. Patient is assessed as a low complexity based on the following: History: 83-year-old male with impairment level findings, functional limitations, and past medical history as indicated above Examination: Demonstrable impairment in strength, balance, and mobility level with underlying impairments and functional limitations as documented above Presentation: stable Decision Making: low Goals: N/A. PT evaluation and 1 treatment sessions only for HEP instruction. Plan of Care/Treatment Plan: N/A. PT evaluation and 1 treatment session only for HEP instruction. DISCHARGE RECOMMENDATIONS:Home with no services TREATMENT CODE/TIME:97342, [id number]/ [id number] Thank you for the opportunity to participate in the care of this patient. Agnes Caballero PT [facility]
--- NOTE | 2024-11-10 11:12 | DSE_ITS ---
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 He had recently returned from [facility] and were in august crowded rooms. HPI mentions cough and sputum production but he denied any history of those symptoms or other symptoms of focal infection such as rhinrrhea, rash, abdominal pain, or urinary symtpoms. CT C/A/P did not show focal infection. Urinalysis was bland other than 3-5 RBC. He met SIRS criteria with T 38.6, pulse in 90s, and WBC 13.4 on admission so there was concern for sespsi, but he had no focal source. He was admitted overnight and felt better by the next morning. His vital signs normalized and he did not have any recurrence of fever. His WBC normalized to 9. He had one loose stool but no abdominal pain. He did get a dose of Ceftriaxone and azithromycin in the ED because of initial concern for pneumonia, but this was not continued with the CT results and having no symptoms. He and both understand some uncertainty and prefer to discharge home and return if high fevers recur or he feels otherwise worse. Tick panel was not done but could be considered if fevers recur. Bilirubin was mildly elevate, but this is chronic. His TSH was low and his T4 was mildly elevated. This returned just after the patient was discharged. 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 Given he was not symptomatic at the time of discharge with a pulse of around 60 BPM, this was not treated, but this should be considered before additional Keytruda dosing. Blood cultures pending at the time of discharge. Recommendations for Follow Up Recommended tests to be ordered by follow up provider: Repeat urinalysis due to mild hematuria Repeat TSH, T4, fT3 Home Meds and New Rx's Prescriptions: No Action ascorbate calcium (vitamin C) 500 mg tablet 500 mg PO DAILY Adult Probiotic 3 billion cell capsule 3,000 mmu cells PO DAILY Rx Instructions: administer with a meal niacin 50 mg tablet 50 mg PO BID Keytruda 25 mg/mL solution 200 mg IV Q6W Rx Instructions: administer over 30 mins gabapentin 300 mg capsule 600 - 900 mg PO TID Patient Comments: 2 in the A.m. 2 at noon and 3 at bedtime rosuvastatin 10 mg tablet 10 mg PO DAILY multivitamin [Daily Multi-Vitamin] 1 EACH tablet 1 tab PO DAILY dapsone 25 mg tablet 75 mg PO DAILY Patient Comments: for pemphigoid Rx Instructions: 75mg alternating with 50mg xxwor-dimfy-vab colchicine 0.6 mg capsule 0.6 mg PO DAILY PRN Rx Instructions: take 2 capsules 1.2mg then take 1 capsule 1 hours later. Discharge Instructions Instructions: Fever of Unknown Origin (DC) Additional Instructions: If you feel worse or have a high fever above 102.2, return to the hospital. We will call you if the cultures return positive You need follow up urinalysis to check for red cells. You also need follow up on thyroid dysfunction likely caused by Keytruda. Stand Alone Forms: Nursing Discharge Form Referrals: Robert Granger MD [Primary Care Provider, Medicine] Referral Note: PCP office will call you to schedule an appointment Activity:: Activity as Tolerated Equipment/Supplies:: No Equipment Needed Diet:: As Tolerated Discharge Orders Discharge Orders: Discharge Order (Routine); Ordered 11/10/24 Ordered By: Delvin Park Discharge Data Discharge Date/Time-TO BE ENTERED AT DEPARTURE: 11/10/24 11:15 DS: Summary Time Spent with Patient providing and/or coordinating discharge services: Greater than 30 minutes Status at Discharge Functional status at discharge: independent ambulation Overall status at discharge: patient is back to baseline Mental Status: mental status grossly normal Speech and Movement: speech and movement normal Mood: congruent mood Affect: normal affect Exam Narrative Exam Narrative: GEN: Alert and oriented, NAD Cardiovascular-regular rate and rhythm no murmur rubs gallops Lungs- CTAB. No accessory muscle use speaking in complete sentences Abdomen-soft nontender nondistended bowel sounds active Extremities-no sinus clubbing or edema Neurologic: no tremor Psych-normal mood and affect Psych Mental Status: mental status grossly normal Speech and Movement: speech and movement normal Mood: congruent mood Affect: normal affect DS: Data Vitals/I&O Vitals and I&O: Vital Signs Temperature 36.4 C L 11/10/24 07:24 Temperature Source Temporal Artery Scan 11/10/24 07:24 Pulse 58 L 11/10/24 07:24 Pulse Rhythm Regular 11/10/24 04:21 Pulse 64 11/10/24 01:30 Respiratory Rate 14 11/10/24 07:24 Respiratory Effort Normal 11/10/24 04:21 Respiratory Depth Normal 11/10/24 04:21 Respiratory Pattern Normal 11/10/24 04:21 Blood Pressure 130/67 11/10/24 07:24 Blood Pressure Mean 88 11/10/24 07:24 Blood Pressure Position Sitting 11/09/24 22:11 Pulse Oximetry 95 11/10/24 07:24 Oxygen Delivery Method Room Air 11/10/24 07:24 Oxygen Flow Rate 0 11/10/24 07:24 Pain Level 0 11/10/24 04:21 Intake & Output 11/09/24 11/09/24 11/10/24 11:59 23:59 11:59 Intake Total 2086.667 / 2086.667 Balance 2086.667 / 2086.667 Weight 96.162 kg 97.6 kg Intake: IV 1846.667 / 1846.667 Oral 240 / 240 Other: Urine Appearance Clear Comment pt reports he has voided multiple times this morning. Data Completed and Pending Labs on day of discharge: Labs from last 24 hours 11/10/24 11/10/24 11/10/24 10:09 05:48 00:03 WBC 9.02 RBC 4.19 L Hgb 11.6 L Hct 37.1 L MCV 89 MCH 27.7 MCHC 31.3 L RDW 12.2 Plt Count 209 MPV 9.5 Immature Gran % Neutrophils % Lymphocytes % Monocytes % Eosinophils % Basophils % Nucleated RBC % Absolute Neutrophils Absolute Lymphocytes Absolute Monocytes Absolute Eosinophils Absolute Basophils VBG pH VBG pCO2 VBG pO2 VBG HCO3 VBG Total CO2 VBG O2 Saturation VBG Base Excess VBG Lactate Sodium 138 Potassium 3.7 Chloride 105 Carbon Dioxide 25.6 Anion Gap 7.4 BUN 14 Creatinine 1.0 Est GFR (CKD-EPI 2020) 74.68 Glucose 114 H Calcium 8.4 L Magnesium 2.3 Total Bilirubin 1.3 H AST 21 ALT 35 Alkaline Phosphatase 65 Lactate Dehydrogenase Pending Total Protein 6.5 Albumin 3.2 L Procalcitonin TSH 0.08 L Free T4 1.60 H Urine Color Dark Yellow Urine Clarity Sl Cloudy Urine pH 6.0 Ur Specific [place] 1.010 Urine Protein 30 H Urine Ketones Negative Urine Blood Small H Urine Nitrite Negative Urine Bilirubin Negative Urine Urobilinogen 1.0 H Ur Leukocyte Esterase Negative Urine RBC 3-5 H Urine WBC 0-2 Ur Epithelial Cells Negative Urine Crystals Negative Urine Bacteria Rare Urine Casts Negative Urine Mucus Moderate Urine Other Rare Renal Ur Culture Indicated? C&S Done As Ordered Urine Glucose Negative COVID-19 Source SARS-CoV-2 (PCR) Influenza Type A (PCR) Influenza Type B (PCR) RSV (PCR) 11/09/24 11/09/24 23:18 22:37 WBC 13.44 H RBC 4.60 Hgb 13.1 L Hct 40.2 MCV 87 MCH 28.5 MCHC 32.6 RDW 12.3 Plt Count 244 MPV 9.2 Immature Gran % 0.3 Neutrophils % 75.7 Lymphocytes % 12.6 Monocytes % 9.7 Eosinophils % 1.3 Basophils % 0.4 Nucleated RBC % 0.0 Absolute Neutrophils 10.17 H Absolute Lymphocytes 1.69 Absolute Monocytes 1.30 H Absolute Eosinophils 0.17 Absolute Basophils 0.05 VBG pH 7.46 H VBG pCO2 34 L VBG pO2 66 VBG HCO3 24 VBG Total CO2 22 L VBG O2 Saturation 94 VBG Base Excess 0 VBG Lactate 0.9 Sodium 136 Potassium 3.8 Chloride 100 Carbon Dioxide 25.8 Anion Gap 10.2 BUN 17 Creatinine 1.0 Est GFR (CKD-EPI 2020) 74.68 Glucose 137 H Calcium 9.1 Magnesium Total Bilirubin 1.5 H AST 26 ALT 45 Alkaline Phosphatase 75 Lactate Dehydrogenase Total Protein 7.6 Albumin 3.7 Procalcitonin < 0.10 TSH Free T4 Urine Color Urine Clarity Urine pH Ur Specific [place] Urine Protein Urine Ketones Urine Blood Urine Nitrite Urine Bilirubin Urine Urobilinogen Ur Leukocyte Esterase Urine RBC Urine WBC Ur Epithelial Cells Urine Crystals Urine Bacteria Urine Casts Urine Mucus Urine Other Ur Culture Indicated? Urine Glucose COVID-19 Source Nasopharynx SARS-CoV-2 (PCR) Negative Influenza Type A (PCR) Negative Influenza Type B (PCR) Negative RSV (PCR) Negative 11/10/24 00:03 Urine - Clean Catch Urine Culture - Pending 11/09/24 23:18 Blood Blood Culture - Pending 11/09/24 22:37 Blood Blood Culture - Pending Preliminary micro results at discharge 11/10/24 00:03 Urine - Clean Catch Urine Culture - Pending 11/09/24 23:18 Blood Blood Culture - Pending 11/09/24 22:37 Blood Blood Culture - Pending PFSH All Active Problems (Updated 11/10/24 @ 11:26 by Delvin Park) Abnormal thyroid function test (Acute) Hematuria (Acute) Atelectasis of left lung (Acute) Sepsis (Acute) Fever (Acute) Metastatic melanoma (Acute) Obesity (Chronic) Skin lesions, generalized (Acute) Glucose intolerance (Acute 10/08/17) Back pain (Acute 11/28/11) Essential tremor (Acute) 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 Onychomycosis (Acute) Neuropathy (Acute) LLQ pain (Acute) Left shoulder pain (Acute) Medical History Pancreas cyst (10/08/17) Gout Social History Smoking/Tobacco Use Status: Never Smoking risk assessment performed?: Yes Alcohol Intake: never Drug use: Never Substance use type: does not use Housing: house Time Spent with Patient Time Spent with Patient: <45 minutes Time was spent: preparing to see the patient(eg.review tests), obtaining and/or reviewing separately otained hiistory, ordering medications,tests, procedures, referring, communicating with other health wound care center consultant, indepentently interpreting results, counseling the patient and care coordination
== END 2024-11-10 11:15 | disposition home or self-care (01) ==
LOC: ER 11-10 03:35 → MS 11-10 03:55
PROVIDERS: Internal Medicine Medical Oncology; Nurse Practitioner; Admitting Provider Hospitalist; Emergency Provider Student in an Organized Health Care Education/Training Program; PCP Family Medicine; Responsible Provider Family Medicine; Visit Provider Hospitalist
DX: R50.9 Fever, unspecified (principal); R65.10 Systemic inflammatory response syndrome (SIRS) of non-infectious origin without acute organ dysfunction; C43.9 Malignant melanoma of skin, unspecified; R31.9 Hematuria, unspecified; C78.01 Secondary malignant neoplasm of right lung; E78.00 Pure hypercholesterolemia, unspecified; Z79.899 Other long term (current) drug therapy; E66.9 Obesity, unspecified; B35.1 Tinea unguium; G25.0 Essential tremor; G60.3 Idiopathic progressive neuropathy; R05.9 Cough, unspecified; D72.829 Elevated white blood cell count, unspecified; L12.8 Other pemphigoid; E07.89 Other specified disorders of thyroid; Z68.30 Body mass index [BMI] 30.0-30.9, adult; K86.9 Disease of pancreas, unspecified
CPT/HCPCS: 00123; 36415; 74177; 80053; 82805; 84145; 85027; 87040; 87637; 96361; 96365; 96366; 96367; 96372; 96375; 97110; 97162; 99285; J1650; 71260; 81003; 81015; 83605; 83615; 83735; 84439; 84443; 85025; 87086; 99222; 99236; G0378; J0696; J1885; J2543; J3373; J3490

== ENCOUNTER 2024-11-19 04:47 | Outpatient (CLI) | payer MEDICARE, SELFPAY ==
[2024-11-19 10:26] LABS: Abs Immature Grans 0.03 10^3/uL (0.0-0.06); HCT 41.3 % (40.0-50.0); HGB 13.0 g/dL (13.5-17.5); Immature Grans % 0.3 %; MCH 28.0 pg (27.0-33.0); MCHC 31.5 % (32.0-36.0); MCV 89 fL (80-95); MPV 9.0 fL (8.0-11.0); Platelet Count 286 10^3/uL (130-400); RBC 4.64 10^6/uL (4.36-5.78); RDW 12.5 % (11.8-14.1); RDW-SD 40.9 fL; WBC 9.67 10^3/uL (4.4-10.8)
[2024-11-19 10:51] LABS: ALT 46 U/L (16-63); AST 26 U/L (15-37); Albumin 3.7 g/dL (3.4-5.0); Alkaline Phosphatase 87 U/L (46-116); Anion Gap 6.1 mmol/L (3-11); BUN 16 mg/dL (7-18); Bilirubin, Total 1.3 mg/dL (0.2-1.0); CO2 29.9 mmol/L (21.0-32.0); Calcium 9.2 mg/dL (8.5-10.1); Chloride 100 mmol/L (98-107); Estimated GFR 66.61 (mL/min/1.73m2); Glucose 114 mg/dL (74-106); Magnesium 2.3 mg/dL (1.8-2.4); Potassium 4.3 mmol/L (3.5-5.1); Sodium 136 mmol/L (136-145); TSH 0.01 uIU/mL (0.36-3.74); Total Protein 7.7 g/dL (6.4-8.2)
[2024-11-21 11:23] LABS: Adrenocorticotropic Hormone, P 56 pg/mL
== END 2024-11-19 04:48 | disposition home or self-care (01) ==
LOC: LBO 04:47
PROVIDERS: PCP Family Medicine; Visit Provider Nurse Practitioner
DX: Z79.899 Other long term (current) drug therapy (principal); C78.00 Secondary malignant neoplasm of unspecified lung
CPT/HCPCS: 36415; 80053; 82533; 82024; 83735; 84439; 84443; 85025

== ENCOUNTER 2025-01-12 02:51 | Outpatient (CLI) | payer MEDICARE, SELFPAY ==
[2025-01-12 08:49] LABS: Abs Immature Grans 0.02 10^3/uL (0.0-0.06); HCT 43.8 % (40.0-50.0); HGB 13.6 g/dL (13.5-17.5); Immature Grans % 0.3 %; MCH 27.0 pg (27.0-33.0); MCHC 31.1 % (32.0-36.0); MCV 87 fL (80-95); MPV 9.5 fL (8.0-11.0); Platelet Count 173 10^3/uL (130-400); RBC 5.03 10^6/uL (4.36-5.78); RDW 15.3 % (11.8-14.1); RDW-SD 48.6 fL; WBC 6.99 10^3/uL (4.4-10.8)
[2025-01-12 09:58] LABS: ALT 29 U/L (16-63); AST 30 U/L (15-37); Albumin 4.1 g/dL (3.4-5.0); Alkaline Phosphatase 62 U/L (46-116); Anion Gap 5.7 mmol/L (3-11); BUN 12 mg/dL (7-18); Bilirubin, Total 1.1 mg/dL (0.2-1.0); CO2 31.3 mmol/L (21.0-32.0); Calcium 8.9 mg/dL (8.5-10.1); Chloride 105 mmol/L (98-107); Estimated GFR 66.19 (mL/min/1.73m2); Glucose 105 mg/dL (74-106); Potassium 4.4 mmol/L (3.5-5.1); Sodium 142 mmol/L (136-145); TSH 12.70 uIU/mL (0.36-3.74); Total Protein 7.5 g/dL (6.4-8.2)
[2025-01-12 10:20] LABS: LDH 196 U/L (85-227)
== END 2025-01-12 02:52 | disposition home or self-care (01) ==
LOC: LBO 02:51
PROVIDERS: PCP Family Medicine; Visit Provider Internal Medicine Medical Oncology
DX: Z79.899 Other long term (current) drug therapy (principal); C78.00 Secondary malignant neoplasm of unspecified lung
CPT/HCPCS: 36415; 80053; 83615; 84439; 84443; 85025